=== PATIENT | female | born 1970 | race Caucasian/White ===

== ENCOUNTER 2017-01-21 19:31 | Emergency (ER) | payer SELFPAY ==
[~2017-01-21] VITALS: Ht 162.6 cm; Wt 50.0 kg
[2017-01-21 19:46] VITALS: BP 128/60; PULSE 64; RESP 18; TEMP 98.1; O2SAT 98
[2017-01-21] MEDS ORDERED: SODIUM CHLOR 0.9% 1000 ML INJ 1,000 ML IV SCH (19:53)
[2017-01-21 19:55] VITALS: O2SAT 98
[2017-01-21] MEDS ORDERED: SODIUM CHLORIDE 0.9% FLUSH 10 ML FLUSH IV FLUSH PRN (20:00)
[2017-01-21] MEDS ORDERED: ONDANSETRON HCL 4 MG/2 ML VIAL IVP ONE (20:00)
--- NOTE | 2017-01-21 20:00 | PD ---
HPI Chief Complaint: General Weakness Time Seen by Provider: 19:47 Travel History International Travel<30 days: No Contact w/Intl Traveler<30days: No Traveled to known affect area: No History of Present Illness HPI Patient comes in for evaluation complaining of generalized weakness began earlier today. Patient states she is currently homeless and [place] sleep [place] the [place] the last 2 nights. Patient states that she has not been eating much and her friend brought her a Sprite earlier today and help her get underneath the pier to get out of the sun. Patient tried [place] steps [place] the pier and was unable, so EMS was called. Patient denies any pain anywhere. Denies any chest pain, shortness of breath, vomiting, loss or change in bowel or bladder, vaginal discharge, fevers, headaches, change in vision, numbness or tingling anywhere, back pain, or neck pain. Patient states she's been couch surfing a friend's house to sleep until the past 2 days, causing her to sleep on the beach. Patient states she has been homeless since her van brook down 2 weeks ago. Patient states she has not been eating much. Patient states that she occasionally uses methamphetamine last time she used was approximately 8 or 9 days ago. [facility] Past Medical History Medical History: Denies Significant Hx ?: Unknown Social History Tobacco Use: Yes Substance Use: Yes Allergies-Medications (Allergen,Severity, Reaction): Coded Allergies: No Known Allergies (Unverified , 01/24/17) Reported Meds & Prescriptions Reported Meds & Active Scripts Active Review of Systems Except as stated in HPI: all other systems reviewed are Neg Physical Exam Narrative GENERAL: Well-developed, well nourished, in no acute distress, and non-ill appearing. SKIN: Focused skin assessment warm and dry. Sand noted on face and hair. HEAD: Atraumatic. Normocephalic. EYES: Pupils equal and round. EOMI. No scleral icterus. No injection or drainage. ENT: No nasal bleeding or discharge. Mucous membranes pink and moist. NECK: Trachea midline. No JVD. Supple. No nuclear rigidity. CARDIOVASCULAR: Regular rate and rhythm. No murmur appreciated. RESPIRATORY: No accessory muscle use. No respiratory distress. Clear to auscultation. Breath sounds equal bilaterally. GASTROINTESTINAL: Abdomen soft, non-tender, nondistended, and no guarding. Hepatic and splenic margins not palpable. Normal bowel sounds 4. No pulsatile mass. MUSCULOSKELETAL: No obvious deformities. No clubbing. No cyanosis. No edema. Full range of motion. NEUROLOGICAL: Awake and alert. No obvious cranial nerve deficits. Motor grossly within normal limits. Normal speech. Normal gait. PSYCHIATRIC: Appropriate mood and affect; insight and judgment normal. Data Data Last Documented VS Orders Orders Basic Metabolic Panel (Bmp) (01/21/17 19:53) Complete Blood Count With Diff (01/21/17 19:53) Urinalysis - C+S If Indicated (01/21/17 19:53) Iv Access Insert/Monitor (01/21/17 19:53) Ecg Monitoring (01/21/17:53) Oximetry (01/21/17 19:53) Ondansetron Inj (Zofran Inj) (01/21/17 20:00) Sodium Chlor 0.9% 1000 Ml Inj (Ns 1000 M (01/21/17 19:53) Sodium Chloride 0.9% Flush (Ns Flush) (01/21/17 20:00) Ed Urine Pregnancytest Poc (01/21/17 19:53) Urine Culture (01/21/17 20:18) Ceftriaxone Inj (Rocephin Inj) (01/21/17 21:15) Labs Laboratory Tests Test 01/21/17 20:18 White Blood Count 7.5 TH/MM3 Red Blood Count 3.73 MIL/MM3 Hemoglobin 11.7 GM/DL Hematocrit 34.5 % Mean Corpuscular Volume 92.4 FL Mean Corpuscular Hemoglobin 31.4 PG Mean Corpuscular Hemoglobin Concent 34.0 % Red Cell Distribution Width 12.6 % Platelet Count 319 TH/MM3 Mean Platelet Volume 6.6 FL Neutrophils (%) (Auto) 70.5 % Lymphocytes (%) (Auto) 23.3 % Monocytes (%) (Auto) 3.9 % Eosinophils (%) (Auto) 1.7 % Basophils (%) (Auto) 0.6 % Neutrophils # (Auto) 5.3 TH/MM3 Lymphocytes # (Auto) 1.7 TH/MM3 Monocytes # (Auto) 0.3 TH/MM3 Eosinophils # (Auto) 0.1 TH/MM3 Basophils # (Auto) 0.0 TH/MM3 CBC Comment DIFF FINAL Differential Comment Urine Color YELLOW Urine Turbidity HAZY Urine pH 7.0 Urine Specific [place] 1.014 Urine Protein NEG mg/dL Urine Glucose (UA) NEG mg/dL Urine Ketones NEG mg/dL Urine Occult Blood NEG Urine Nitrite NEG Urine Bilirubin NEG Urine Urobilinogen 2.0 MG/DL Urine Leukocyte Esterase NEG Urine RBC LESS THAN 1 /hpf Urine WBC 4 /hpf Urine Squamous Epithelial Cells <1 /hpf Urine Amorphous Sediment RARE Urine Bacteria MANY /hpf Urine Mucus FEW /lpf Microscopic Urinalysis Comment CULTURE INDICATED Blood Urea Nitrogen 9 MG/DL Creatinine 0.66 MG/DL Random Glucose 109 MG/DL Calcium Level 7.9 MG/DL Sodium Level 138 MEQ/L Potassium Level 3.9 MEQ/L Chloride Level 104 MEQ/L Carbon Dioxide Level 29.5 MEQ/L Anion Gap 5 MEQ/L Estimat Glomerular Filtration Rate 97 ML/MIN MDM Medical Decision Making Medical Screen Exam Complete: Yes Emergency Medical Condition: Yes Differential Diagnosis Dehydration, electrolyte abnormality, UTI, homeless, other Narrative Course Patient in no obvious distress upon re-evaluation. All pertinent laboratory result(s) discussed with patient. Patient was started on Bactrim for her UTI. Patient was asked if they wanted to speak to my attending, which the patient did not wish to do at this time. Any questions/concerns in reference to patient diagnosis/condition discussed and clarified prior to patient's discharge. Reinforced sheer importance of close follow up with patient's primary physician or primary care clinic. Instructed patient to return to ED immediately, if symptoms return/worsen. Pt showed understanding of above instructions. Further instructions and recommendations were detailed in discharge paperwork. Pt ambulated without difficulty out of ED at discharge. Diagnosis Primary Impression: UTI (urinary tract infection) Qualified Codes: N39.0 - Urinary tract infection, site not specified Referrals: [facility] Patient Instructions: General Instructions, Urinary Tract Infection in Women ( ED) Additional Instructions: Follow-up with your primary care physician in 5-7 days for reevaluation. Take all medication as prescribed. Drink plenty of non-caffeinated and nonalcoholic fluids. Return to the emergency department if symptoms get worse. Med/Other Pt SpecificInfo: Prescription(s) given Disposition: 01 DISCHARGE HOME Condition: Stable Juan José Solomon Jan 21, 2017 20:00
[2017-01-21 21:06] LABS: AUTOMATED NEUTROPHIL # 5.3 TH/MM3 (1.8-7.7); BASOPHIL % 0.6 % (0.0-2.0); EOSINOPHIL # 0.1 TH/MM3 (0-0.4); EOSINOPHIL % 1.7 % (0.0-4.0); HEMATOCRIT 34.5 % (35.0-46.0); HEMO FLAGS DIFF FINAL; LYMPH % 23.3 % (9.0-44.0); LYMPHOCYTE # 1.7 TH/MM3 (1.0-4.8); MEAN CELL VOLUME 92.4 FL (80.0-100.0); MEAN CORPUSCULAR HEMOGLOBIN 31.4 PG (27.0-34.0); MONO % 3.9 % (0.0-8.0); NEUT % 70.5 % (16.0-70.0); PLATELET COUNT 319 TH/MM3 (150-450); RED BLOOD COUNT 3.73 MIL/MM3 (4.00-5.30); RED CELL DISTRIBUTION WIDTH 12.6 % (11.6-17.2); WHITE BLOOD COUNT 7.5 TH/MM3 (4.0-11.0)
[2017-01-21 21:11] LABS: BACTERIA, URINE MANY /hpf; BLOOD, URINE NEG (NEG); COMMENT (UR) CULTURE INDICATED; CULTURE IF INDICATED CULTURE INDICATED; GLUCOSE,URINE NEG (NEG); KETONE, URINE NEG (NEG); MUCUS URINE FEW /lpf (OCC); NITRITE,URINE NEG (NEG); SQUAMOUS EPITHELIAL CELL URINE <1 /hpf (0-5); URINE COLOR YELLOW (YELLW/STRAW)
[2017-01-21] MEDS ORDERED: cefTRIAXone INJ 1,000 MG in SODIUM CHLORIDE 0.9% INJ 100 ML IV ONE (21:15)
[2017-01-21 21:33] LABS: BICARBONATE 29.5 MEQ/L (21.0-32.0)
[2017-01-21 21:34] LABS: POTASSIUM 3.9 MEQ/L (3.5-5.1)
[2017-01-21] MEDS ORDERED: BACT800T5 PO (21:45)
[2017-01-21 22:26] VITALS: BP 107/63
== END 2017-01-21 22:48 | disposition home or self-care (01) ==
LOC: NEPE 19:31
DX: N39.0 Urinary tract infection, site not specified (principal); B96.20 Unspecified Escherichia coli [E. coli] as the cause of diseases classified elsewhere; Z59.0 Homelessness; Z72.0 Tobacco use
CPT/HCPCS: 80048; 81001; 84703; 85025; 87077; 87086; 87186; 96361; 96365; 96375; 99284; J0696; J2405; J7030

== ENCOUNTER 2017-01-24 17:13 | Emergency (ER) | payer SELFPAY ==
[~2017-01-24] VITALS: Ht 162.6 cm; Wt 56.7 kg
[~2017-01-24 17:13] MED LIST: BACT800T5 PO
[2017-01-24 17:23] VITALS: BP 121/60; PULSE 86; RESP 16; TEMP 99; O2SAT 97
--- NOTE | 2017-01-24 18:27 | PD ---
HPI Chief Complaint: Injury Time Seen by Provider: 17:40 Travel History International Travel<30 days: No Contact w/Intl Traveler<30days: No Traveled to known affect area: No History of Present Illness HPI 46-year-old female presents emergency department for evaluation of right shoulder pain. Patient reports she was wrestling with a family member last night when the injury occurred.. She reports she felt a pop and crack within the right shoulder. She is reporting that she has limited range of motion. She has pain within the joint. She denies numbness/tingling/weakness of the extremity. She denies any previous history of shoulder dislocation. [facility] Past Medical History Medical History: Denies Significant Hx Influenza Vaccination: No ?: Not LMP: 1 1/2 weeks : 9 Para: 5 Miscarriage: 4 Past Surgical History Surgical History: No Previous Surgery Social History Alcohol Use: No Tobacco Use: Yes (06/06 PPD) Substance Use: Yes Allergies-Medications (Allergen,Severity, Reaction): Coded Allergies: No Known Allergies (Unverified , 01/24/17) Reported Meds & Prescriptions Reported Meds & Active Scripts Active Review of Systems Except as stated in HPI: all other systems reviewed are Neg General / Constitutional: No: Fever Eyes: No: Visual changes HENT: No: Headaches Cardiovascular: No: Chest Pain or Discomfort Respiratory: No: Shortness of Breath Gastrointestinal: No: Abdominal Pain Genitourinary: No: Dysuria Physical Exam Narrative GENERAL: Well-nourished, well-developed patient. SKIN: Focused skin assessment warm/dry. HEAD: Normocephalic. Normocephalic EYES: No scleral icterus. No injection or drainage. NECK: Supple, trachea midline. No JVD or lymphadenopathy. CARDIOVASCULAR: Regular rate and rhythm without murmurs, gallops, or rubs. RESPIRATORY: Breath sounds equal bilaterally. No accessory muscle use. GASTROINTESTINAL: Abdomen soft, non-tender, nondistended. MUSCULOSKELETAL: No cyanosis, or edema. Right upper extremity: Patient has notable point tenderness to the anterior and posterior aspect of the right shoulder. The arm is held in adduction against the body. No step-off or obvious deformity noted. 2+ distal pulses. Normal sensation. The extremity is warm with Brisk cap refill. BACK: Nontender without obvious deformity. No CVA tenderness. Data Data Last Documented VS Vital Signs Date Time Temp Pulse Resp B/P (MAP) Pulse Ox O2 Delivery O2 Flow Rate FiO2 01/24/17 17:23 99.0 86 16 121/60 (80) 97 Orders Orders Shoulder, Complete (>2vws) (01/24/17 ) [facility] Medical Decision Making Medical Screen Exam Complete: Yes Emergency Medical Condition: Yes Differential Diagnosis Right shoulder strain/sprain versus fracture versus dislocation Narrative Course 46-year-old female presents emergency department for evaluation of right shoulder pain status post injury while wrestling with a family member last night. Patient reports she has severe pain with abduction and full extension over the head. Patient has notable tenderness to the anterior and posterior aspect of the joint. There is no obvious deformity. 2+ distal pulses. Extremities neurovascular intact. X-ray pending X-ray of the left shoulder is negative for fracture dislocation. Visual be treated for shoulder strain. Right upper extremity put in sling. She was instructed to continue [id number] NSAIDs as needed for pain and inflammation. Follow-up the primary doctor. Patient verbalizes understanding and agrees to plan Diagnosis Primary Impression: Right shoulder strain Qualified Codes: S46.911A - Strain of unspecified muscle, fascia and tendon at shoulder and upper arm level, right arm, initial encounter Referrals: Primary Care Physician Additional Instructions: Keep the upper extremity in the sling as instructed. Take [id number] Motrin 600-800 milligrams by mouth every 6-8 hours as needed for pain. Avoid heavy lifting or strenuous activity. Follow-up with her primary care doctor. Disposition: 01 DISCHARGE HOME Condition: Stable Callie Bautista Jan 24, 2017 18:27
--- NOTE | 2017-01-24 18:28 | RADRPT ---
EXAM DATE/TIME: 01/24/2017 17:42 [facility] COMPARISON: No previous studies available for comparison. INDICATIONS : Complains of right shoulder pain. MEDICAL HISTORY : None. SURGICAL HISTORY : None. ENCOUNTER: Initial ACUITY: 2 days PAIN SCORE: 7/10 LOCATION: Right shoulder FINDINGS: 4 views of the right shoulder demonstrate no fracture or dislocation. The acromioclavicular joint is intact but demonstrates mild osteoarthritis change. The visualized soft tissues demonstrate no abnorm ality. Visualized portions of the right lung are clear. No displaced rib fracture is seen. CONCLUSION: No acute right shoulder abnormality is identified. Grabiel Duran MD on January 24, 2017 at 18:25 Board Certified Radiologist. This report was verified electronically.
== END 2017-01-24 18:55 | disposition home or self-care (01) ==
LOC: PHEFT 17:13
DX: S46.911A Strain of unspecified muscle, fascia and tendon at shoulder and upper arm level, right arm, initial encounter (principal); F17.210 Nicotine dependence, cigarettes, uncomplicated; Y93.72 Activity, wrestling
CPT/HCPCS: 73030; 99283

== ENCOUNTER 2017-02-26 13:35 | Emergency (ER) | payer SELFPAY ==
[~2017-02-26] VITALS: Ht 162.6 cm; Wt 56.0 kg
[2017-02-26 13:42] VITALS: BP 118/58; PULSE 85; RESP 16; TEMP 97.4; O2SAT 99
[2017-02-26] MEDS ORDERED: ONDANSETRON ODT 4 MG TAB PO ONE (14:15)
[2017-02-26] MEDS ORDERED: PENICILLIN V POTASSIUM 500 MG TAB PO ONE (14:15)
--- NOTE | 2017-02-26 14:39 | PD ---
HPI Chief Complaint: Oral / Dental Pain or Problem Time Seen by Provider: 14:00 Travel History International Travel<30 days: No Contact w/Intl Traveler<30days: No Traveled to known affect area: No History of Present Illness HPI 46-year-old female presents to the emergency room for evaluation of right-sided dental pain, nausea, and facial swelling. Pain started 2 days ago and stopped yesterday. Nausea and swelling started today. She has history of problems with the affected tooth but has never been on antibiotics for it. Patient denies fever, chills. Reports feeling unwell today. She did not take anything for her symptoms. Patient went to a dentist this morning but states she could not afford the $78 it cost just to be seen, not treated. No chronic medical conditions or daily medications. She denies nasal congestion. PFSH Past Medical History Diminished Hearing: No Influenza Vaccination: No ?: Not LMP: 25 days ago : 9 Para: 5 Miscarriage: 4 Social History Alcohol Use: No Tobacco Use: Yes (06/06 PPD) Substance Use: Yes Allergies-Medications (Allergen,Severity, Reaction): Coded Allergies: No Known Allergies (Unverified , 02/26/17) Reported Meds & Prescriptions Reported Meds & Active Scripts Active Zofran Odt (Ondansetron Odt) 4 Mg Tab 4 Mg SL Q6HR PRN Penicillin V Potassium 500 Mg Tab 500 Mg PO Q8H 7 Days Review of Systems Except as stated in HPI: all other systems reviewed are Neg Physical Exam Narrative GENERAL: Well-nourished, well-developed female in no acute distress. Afebrile. Ambulatory. SKIN: Focused skin assessment warm/dry. HEAD: Normocephalic. EYES: No scleral icterus. No injection or drainage. DENTAL: No malocclusion. Tooth #10 is loose with receding gum line. There is surrounding erythema but no obvious drainage or edema. There is mild right- sided facial edema. No induration. No submental, submandibular, or buccal induration. NECK: Supple, trachea midline. No JVD or lymphadenopathy. CARDIOVASCULAR: Regular rate and rhythm without murmurs, gallops, or rubs. RESPIRATORY: Breath sounds equal bilaterally. No accessory muscle use. GASTROINTESTINAL: Abdomen soft, non-tender, nondistended. Data Data Last Documented VS Vital Signs Date Time Temp Pulse Resp B/P (MAP) Pulse Ox O2 Delivery O2 Flow Rate FiO2 02/26/17 13:42 97.4 85 16 118/58 (78) 99 Orders Orders Ondansetron Odt (Zofran Odt) (02/26/17 14:15) Penicillin V Potassium (Veetids) (02/26/17 14:15) MDM Medical Decision Making Medical Screen Exam Complete: Yes Emergency Medical Condition: Yes Medical Record Reviewed: Yes Differential Diagnosis Dental abscess, gingivitis, periodontal disease, cavity Narrative Course 46-year-old female presents to the emergency room for evaluation of right upper dental pain and facial swelling for the past 2 days. Pain started 2 days ago and stopped yesterday. Nausea and swelling started today. No history of fever or chills. Physical exam reveals tooth #10 is loose with receding gumline and surrounding erythema. No obvious dental abscess to drain. No evidence of Chava's angina. There is mild associated right sided facial edema. It is mildly tender to palpation. Patient will be treated empirically for dental infection with penicillin. She was given Zofran in the emergency room with significant relief of nausea. She was discharged with penicillin and short course of Zofran. Told to follow up with a dentist or return for worsening symptoms. She understands and agrees to plan. Diagnosis Primary Impression: Dental abscess Referrals: Dentist Additional Instructions: Rest and drink plenty of fluids. Penicillin as directed, until gone. Zofran as directed, as needed for nausea. Ibuprofen and Tylenol as directed, as needed for pain. Follow-up with a dentist. Return to the emergency room for worsening symptoms. Scripts Ondansetron Odt (Zofran Odt) 4 Mg Tab 4 MG SL Q6HR Y for Nausea/Vomiting, #10 TAB 0 Refills Prov: Darius Palomino MD 02/26/17 Penicillin V Potassium (Penicillin V Potassium) 500 Mg Tab 500 MG PO Q8H for Infection for 7 Days, #21 TAB 0 Refills Prov: Darius Palomino MD 02/26/17 Disposition: 01 DISCHARGE HOME Condition: Stable Su Camara Feb 26, 2017 14:39
[2017-02-26] MEDS ORDERED: PENI500T PO (14:53)
[2017-02-26] MEDS ORDERED: ZOFR4TAB3 SL (14:53)
== END 2017-02-26 15:10 | disposition home or self-care (01) ==
LOC: PHEFT 13:35
DX: K04.7 Periapical abscess without sinus (principal); R11.0 Nausea; F17.200 Nicotine dependence, unspecified, uncomplicated
CPT/HCPCS: 99284

== ENCOUNTER 2017-08-13 12:32 | Emergency (ER) | payer SELFPAY ==
[~2017-08-13 12:32] MED LIST changes: -BACT800T5 PO; +PENI500T PO; +ZOFR4TAB3 SL
[2017-08-13 13:10] VITALS: BP 132/83; PULSE 106; RESP 18; TEMP 97.6; O2SAT 99
[2017-08-13 13:43] LABS: AUTOMATED NEUTROPHIL # 6.5 TH/MM3 (1.8-7.7); BASOPHIL # 0.1 TH/MM3 (0-0.2); BASOPHIL % 0.7 % (0.0-2.0); EOSINOPHIL # 0.1 TH/MM3 (0-0.4); EOSINOPHIL % 0.9 % (0.0-4.0); HEMATOCRIT 38.3 % (35.0-46.0); HEMOGLOBIN 13.7 GM/DL (11.6-15.3); LYMPH % 19.3 % (9.0-44.0); LYMPHOCYTE # 1.7 TH/MM3 (1.0-4.8); MEAN CELL VOLUME 90.9 FL (80.0-100.0); MEAN CORPUSCULAR HEMOGLOBIN 32.4 PG (27.0-34.0); MEAN CORPUSCULAR HGB CONC 35.7 % (32.0-36.0); MEAN PLATELET VOLUME 6.1 FL (7.0-11.0); MONO % 6.8 % (0.0-8.0); MONOCYTE # 0.6 TH/MM3 (0-0.9); NEUT % 72.3 % (16.0-70.0); PLATELET COUNT 430 TH/MM3 (150-450); RED BLOOD COUNT 4.22 MIL/MM3 (4.00-5.30)
[2017-08-13 14:16] LABS: ALBUMIN 3.4 GM/DL (3.4-5.0); AST (GOT) 24 U/L (15-37); BICARBONATE 29.1 MEQ/L (21.0-32.0); BLOOD UREA NITROGEN 7 MG/DL (7-18); CALCIUM 9.5 MG/DL (8.5-10.1); CHLORIDE 100 MEQ/L (98-107); CREATININE 0.72 MG/DL (0.50-1.00); GLOMERULAR FILTRATION RATE 88 ML/MIN (>89); GLUCOSE,RANDOM 124 MG/DL (74-106); SODIUM (NA) 136 MEQ/L (136-145)
[2017-08-13 14:17] LABS: ALT (GPT) 37 U/L (10-53)
[2017-08-13 14:19] LABS: ALKALINE PHOSPHATASE 103 U/L (45-117); TOTAL BILIRUBIN ADULT 0.5 MG/DL (0.2-1.0); TOTAL PROTEIN 7.7 GM/DL (6.4-8.2)
--- NOTE | 2017-08-13 15:41 | PD ---
HPI Chief Complaint: Complaint Time Seen by Provider: 15:20 Travel History International Travel<30 days: No Contact w/Intl Traveler<30days: No Traveled to known affect area: No History of Present Illness HPI The patient was seen and examined in the presence of the nurse. This patient reports that she's been fighting off urinary tract symptoms by drinking cranberry juice for the last week. She also was concerned about being dehydrated. 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 She denies fever or flank pain. Symptoms severity is moderate. No alleviating factors. No exacerbating factors. PFSH Past Medical History Diminished Hearing: No ?: Unknown LMP: 07/23/17 : 9 Para: 5 Miscarriage: 4 Past Surgical History Genitourinary Surgery: Yes (PROCEDURE TO CORRECT NARROWING OF URETER) Social History Alcohol Use: No Tobacco Use: Yes (2 PPD) Substance Use: Yes ("WEED AND SPEED TWICE A MONTH") Allergies-Medications (Allergen,Severity, Reaction): Coded Allergies: alprazolam (Verified Adverse Reaction, Unknown, vomiting, 08/13/17) diazepam (Verified Adverse Reaction, Unknown, VOMITING, 08/13/17) meperidine (Verified Adverse Reaction, Unknown, VOMITING, 08/13/17) Reported Meds & Prescriptions Reported Meds & Active Scripts Active Bactrim DS (Sulfamethoxazole-Trimethoprim) 800-160 Mg Tab 1 Tab PO BID Review of Systems General / Constitutional: No: Fever Eyes: No: Visual changes HENT: No: Headaches Cardiovascular: No: Chest Pain or Discomfort Respiratory: No: Shortness of Breath Gastrointestinal: No: Abdominal Pain Genitourinary: Positive: Urgency, Dysuria Musculoskeletal: No: Pain Skin: No Rash Neurologic: No: Weakness Psychiatric: No: Depression Endocrine: No: Polydipsia Hematologic/Lymphatic: No: Easy Bruising Physical Exam Narrative GENERAL: Well-nourished, well-developed patient in no apparent distress. SKIN: Focused skin assessment reveals no rash and nodules. Skin is Warm and dry. HEAD: Atraumatic. Normocephalic. EYES: Pupils equal and round. No scleral icterus. No injection or drainage. ENT: No nasal bleeding or discharge. Mucous membranes pink and moist. NECK: Trachea midline. No JVD. CARDIOVASCULAR: Regular rate and rhythm. No murmur appreciated. RESPIRATORY: No accessory muscle use. Clear to auscultation. Breath sounds equal bilaterally. GASTROINTESTINAL: Abdomen soft, non-tender, nondistended. Hepatic and splenic margins not palpable. MUSCULOSKELETAL: No obvious deformities. No clubbing. No cyanosis. No edema. NEUROLOGICAL: Awake and alert. No obvious cranial nerve deficits. Motor grossly within normal limits. Normal speech. PSYCHIATRIC: Appropriate mood and affect; insight and judgment normal. Data Data Last Documented VS Vital Signs Date Time Temp Pulse Resp B/P (MAP) Pulse Ox O2 Delivery O2 Flow Rate FiO2 08/13/17 13:10 97.6 106 18 132/83 (99) 99 Orders Orders Complete Blood Count With Diff (08/13/17 13:11) Comprehensive Metabolic Panel (08/13/17 13:11) Urinalysis - C+S If Indicated (08/13/17 13:11) Urine Culture (08/13/17 15:24) Labs Laboratory Tests Test 08/13/17 13:26 08/13/17 15:24 White Blood Count 9.0 TH/MM3 Red Blood Count 4.22 MIL/MM3 Hemoglobin 13.7 GM/DL Hematocrit 38.3 % Mean Corpuscular Volume 90.9 FL Mean Corpuscular Hemoglobin 32.4 PG Mean Corpuscular Hemoglobin Concent 35.7 % Red Cell Distribution Width 13.0 % Platelet Count 430 TH/MM3 Mean Platelet Volume 6.1 FL Neutrophils (%) (Auto) 72.3 % Lymphocytes (%) (Auto) 19.3 % Monocytes (%) (Auto) 6.8 % Eosinophils (%) (Auto) 0.9 % Basophils (%) (Auto) 0.7 % Neutrophils # (Auto) 6.5 TH/MM3 Lymphocytes # (Auto) 1.7 TH/MM3 Monocytes # (Auto) 0.6 TH/MM3 Eosinophils # (Auto) 0.1 TH/MM3 Basophils # (Auto) 0.1 TH/MM3 CBC Comment DIFF FINAL Differential Comment Blood Urea Nitrogen 7 MG/DL Creatinine 0.72 MG/DL Random Glucose 124 MG/DL Total Protein 7.7 GM/DL Albumin 3.4 GM/DL Calcium Level 9.5 MG/DL Alkaline Phosphatase 103 U/L Aspartate Amino Transf (AST/SGOT) 24 U/L Alanine Aminotransferase (ALT/SGPT) 37 U/L Total Bilirubin 0.5 MG/DL Sodium Level 136 MEQ/L Potassium Level 3.7 MEQ/L Chloride Level 100 MEQ/L Carbon Dioxide Level 29.1 MEQ/L Anion Gap 7 MEQ/L Estimat Glomerular Filtration Rate 88 ML/MIN Urine Color YELLOW Urine Turbidity HAZY Urine pH 6.5 Urine Specific [place] 1.012 Urine Protein TRACE mg/dL Urine Glucose (UA) NEG mg/dL Urine Ketones NEG mg/dL Urine Occult Blood TRACE Urine Nitrite POS Urine Bilirubin NEG Urine Urobilinogen LESS THAN 2.0 MG/DL Urine Leukocyte Esterase LARGE Urine RBC 1 /hpf Urine WBC 123 /hpf Urine Squamous Epithelial Cells 3 /hpf Urine Renal Epithelial Cells <1 /hpf Urine Bacteria MOD /hpf Microscopic Urinalysis Comment CULTURE INDICATED MDM Medical Decision Making Medical Screen Exam Complete: Yes Emergency Medical Condition: Yes Medical Record Reviewed: Yes Differential Diagnosis Pyelonephritis, cystitis, dehydration Narrative Course I have reviewed the patient's electronic medical record. Last time she was here was 4 overdose. She was found rolling around on the ground at a gas station bathroom CBC is normal Metabolic profile is normal Urinalysis shows 120 white cells consistent with UTI It will be cultured but Bactrim prescribed in the meantime Diagnosis Primary Impression: Cystitis Additional Instructions: The patient was advised to follow up with their physician and return if they worsen. Med/Other Pt SpecificInfo: Prescription(s) given Scripts Sulfamethoxazole-Trimethoprim (Bactrim DS) 800-160 Mg Tab 1 TAB PO BID for Infection, #10 TAB 0 Refills Prov: Hector Meraz MD 08/13/17 Disposition: 01 DISCHARGE HOME Condition: Stable Hector Meraz MD Aug 13, 2017 15:41
[2017-08-13 16:08] LABS: BACTERIA, URINE MOD /hpf; BILIRUBIN, URINE NEG (NEG); BLOOD, URINE TRACE (NEG); GLUCOSE,URINE NEG (NEG); KETONE, URINE NEG (NEG); NITRITE,URINE POS (NEG); PH, URINE 6.5 (5.0-8.5); RENAL EPITHELIAL CELLS <1 /hpf; SQUAMOUS EPITHELIAL CELL URINE 3 /hpf (0-5); URINE COLOR YELLOW (YELLW/STRAW); URINE LEUKOCYTE ESTERASE LARGE (NEG)
[2017-08-13] MEDS ORDERED: BACT800T5 PO (16:32)
== END 2017-08-13 17:26 | disposition home or self-care (01) ==
LOC: NEPD 12:32
DX: N30.90 Cystitis, unspecified without hematuria (principal); B96.20 Unspecified Escherichia coli [E. coli] as the cause of diseases classified elsewhere; F12.90 Cannabis use, unspecified, uncomplicated; F17.200 Nicotine dependence, unspecified, uncomplicated
CPT/HCPCS: 80053; 81001; 85025; 87077; 87086; 87186; 99283